=== PATIENT | female | born 1945 | race Caucasian/White ===

== ENCOUNTER 2017-02-26 15:55 | Emergency (ER) | payer OTHER ==
[~2017-02-26] VITALS: Ht 175.3 cm; Wt 81.9 kg
[~2017-02-26 15:55] MED LIST: AMLODIPINE BESY10 MG PO; ANTIVERT25 MG PO; CALTRATE 6001 TABLE1 PO; CARBAMAZEPINE200 MG PO; CIPRO500 MG PO; COLACE100 MG PO; DIAZEPAM5 MG PO; EPOGEN,PRO3000 UNITS SC; HEPARIN SO5000 UNITS SC; KEFLEX500 MG PO; KEPPRA1000 MG PO; KEPPRA750 MG PO; LABETALOL HCL100 MG PO; LABETALOL HCL200 MG PO; LISINOPRIL40 MG PO; LO-DOSE ASPIRIN81 M1 PO; LOSARTAN POTASS50 MG PO; NEPHRO-VITE,1 TABLET PO; NORTRIPTYLINE H10 MG PO; NORVASC10 MG PO; PRAVASTATIN SOD40 MG PO; PROTONIX40 MG PO; PYRIDIUM100 MG PO; RENA-VITE RX T1 EACH PO; RENAGEL800 MG PO; RENVELA800 MG PO; ROPINIROLE HCL1 MG PO; ROXICODONE5 MG PO; SENNA-TIME S T1 EACH PO; SENOKOT,SENN1 TABLET PO; SYNTHROID125 MCG PO; SYNTHROID175 MCG PO; TEGRETOL200 MG PO; TRANDATE300 MG PO; TUMS500 MG PO; VALIUM5 MG PO; VELPHORO500 MG PO; VITAMIN B-1100 MG PO; VITAMIN D22000 UNIT PO
[2017-02-26 17:35] LABS: CHLORIDE 99 mEq/L (99-109); POTASSIUM 4.1 mEq/L (3.7-5.4); SODIUM 128 mEq/L (136-147)
[2017-02-26 17:37] LABS: HEMATOCRIT 33.4 % (36.0-46.0); MCH 32.6 PG (29.0-34.0); MCHC 34.7 G/DL (30.0-36.0); MCV 93.8 FL (83-99); RBC DIS.WIDTH-CV 11.5 % (11.8-14.6); RED BLOOD COUNT 3.56 M/uL (3.80-5.20)
[2017-02-26 17:37] LABS: GLUCOSE 161 mg/dL (70-99)
[2017-02-26 17:38] LABS: WHITE BLOOD COUNT 1.5 K/uL (4.1-10.2)
[2017-02-26 17:38] LABS: ANION GAP 12 MEQ/L (2-14)
[2017-02-26 17:39] LABS: TOTAL BILIRUBIN 0.4 mg/dL (0.0-1.0)
[2017-02-26 17:40] LABS: ALKALINE PHOSPHATASE 84 IU/L (3-129)
[2017-02-26 17:41] LABS: GFR ESTIMATE (CALCULATED) 23 mL/min/
[2017-02-26 17:42] LABS: UREA NITROGEN (BUN) 52 mg/dL (9-23)
[2017-02-26 17:44] LABS: CREATINE KINASE 28 IU/L (1-294); TOTAL CK 28 IU/L (1-294)
[2017-02-26 17:49] LABS: CK-MB 2.3 ng/mL (0.0-4.9)
[2017-02-26 17:50] LABS: TROP-I INTERPRETATION NEGATIVE; TROPONIN-I < 0.01 ng/mL (0.0-0.30)
[2017-02-26 18:19] LABS: ADD MIUA? YES; BILIRUBIN NEGATIVE; BLOOD NEGATIVE; COLOR YELLOW ((YELLOW)); GLUCOSE (STRIP) NEGATIVE; KETONES NEGATIVE; LEUKOCYTES NEGATIVE; NITRITE NEGATIVE; PROTEIN (STRIP) 30; SPECIFIC GRAVITY 1.016 (1.000-1.030); UROBILINOGEN 0.2 MG/DL (0.2-1.0)
[2017-02-26 18:33] LABS: BACTERIA RARE /HPF; EPITHELIAL CELLS 4+ /HPF; MUCUS TRACE /LPF; RED BLOOD CELLS 0-5 /HPF (0-5); UCUL ADDED? NO
[2017-02-26] MEDS ORDERED: PAMELOR50 MG PO (19:02)
[2017-02-26] MEDS ORDERED: BACTRIM,SEPT1 TABLE1 PO (19:03)
[2017-02-26] MEDS ORDERED: PEPCID40 MG PO (19:03)
[2017-02-26] MEDS ORDERED: LEVO-T150 MCG PO (19:04)
[2017-02-26] MEDS ORDERED: PREDNISONE5 MG PO (19:05)
[2017-02-26] MEDS ORDERED: PROGRAF1 MG PO (19:06)
[2017-02-26] MEDS ORDERED: MYCOPHENOLATE500 MG PO (19:07)
[2017-02-26] MEDS ORDERED: NORMODYNE,TRAN200 MG PO (19:08)
[2017-02-26 19:17] LABS: ABS NEUTROPHIL COUNT 1.1; ANISOCYTOSIS 1+; ATYPICAL LYMPHOCYTE 2.6 %; BAND NEUTROPHILS 18.4 % (0-8.0); BASOPHILS 2.7 %; EOSINOPHIL ABS CT 0; EOSINOPHILS 2.7 % (0-5.0); GIANT PLATELETS 2+; INSTRUMENT ABS NEUTROPHIL CT 0.7 K/uL; LYMPHOCYTES 2.6 % (15.0-45.0); METAMYELOCYTES 2.6 %; MYELOCYTES 2.6 %; PLAT.SUFFICIENCY DECREASED; PLATELET CLUMPS PRESENT - PLATELET COUNT APPEARS ADQ.; POIKILOCYTOSIS 1+; SEG.NEUTROPHILS 52.6 % (46.0-76.0)
[2017-02-26 19:32] LABS: PLATELET COUNT UNABLE TO REPORT K/uL (156-360)
[2017-02-26 19:38] LABS: C-REACTIVE PROTEIN 120.3 MG/L (0-10)
[2017-02-27 01:14] VITALS: BP 124/58
[2017-02-27 09:26] LABS: LYME DISEASE SEROLOGY SCREEN NEGATIVE (NEGATIVE)
== END 2017-02-27 01:15 | disposition short-term general hospital (02) ==
LOC: EME 15:55
PROVIDERS: Emergency Medicine
DX: E87.1 Hypo-osmolality and hyponatremia (principal); N28.9 Disorder of kidney and ureter, unspecified; D72.829 Elevated white blood cell count, unspecified; Z94.0 Kidney transplant status; Z87.440 Personal history of urinary (tract) infections; Z85.41 Personal history of malignant neoplasm of cervix uteri; E78.5 Hyperlipidemia, unspecified; K21.9 Gastro-esophageal reflux disease without esophagitis; R56.9 Unspecified convulsions; E03.9 Hypothyroidism, unspecified; Z99.2 Dependence on renal dialysis; Z87.891 Personal history of nicotine dependence
CPT/HCPCS: 71020; 80053; 81003; 82550; 82553; 83605; 84484; 85025; 86140; 86618; 87040; 93005; 99281; 99285; J0692; J7030; J7050

== ENCOUNTER 2017-04-18 13:28 | Inpatient (IN) | payer OTHER ==
[~2017-04-18] VITALS: Ht 170.2 cm; Wt 81.4 kg
[~2017-04-18 13:28] MED LIST changes: +BACTRIM,SEPT1 TABLE1 PO; +LEVO-T150 MCG PO; +MYCOPHENOLATE500 MG PO; +NORMODYNE,TRAN200 MG PO; +PAMELOR50 MG PO; +PEPCID40 MG PO; +PREDNISONE5 MG PO; +PROGRAF1 MG PO
[2017-04-18 13:50] LABS: POINT-OF-CARE METER ID UU14100415
[2017-04-18 14:21] LABS: ADD MIUA? YES; BILIRUBIN NEGATIVE; BLOOD SMALL; COLOR YELLOW ((YELLOW)); GLUCOSE (STRIP) NEGATIVE; KETONES NEGATIVE; LEUKOCYTES NEGATIVE; NITRITE POSITIVE; PROTEIN (STRIP) 30; SPECIFIC GRAVITY 1.018 (1.000-1.030); UROBILINOGEN 0.2 MG/DL (0.2-1.0)
[2017-04-18 14:30] LABS: HEMATOCRIT 34.6 % (36.0-46.0); MCH 31.3 PG (29.0-34.0); MCHC 33.8 G/DL (30.0-36.0); MCV 92.5 FL (83-99); MEAN PLAT.VOLUME 11.8 uM^3 (9.5-12.4); PLATELET COUNT 103 K/uL (156-360); RBC DIS.WIDTH-CV 12.1 % (11.8-14.6); RBC DIS.WIDTH-SD 41.1 % (39-53); RED BLOOD COUNT 3.74 M/uL (3.80-5.20)
[2017-04-18 14:41] LABS: CHLORIDE 105 mEq/L (99-109); POTASSIUM 4.4 mEq/L (3.7-5.4); SODIUM 134 mEq/L (136-147)
[2017-04-18 14:43] LABS: GLUCOSE 144 mg/dL (70-99)
[2017-04-18 14:44] LABS: ANION GAP 12 MEQ/L (2-14)
[2017-04-18 14:47] LABS: GFR ESTIMATE (CALCULATED) 52 mL/min/
[2017-04-18 14:48] LABS: UREA NITROGEN (BUN) 22 mg/dL (9-23)
[2017-04-18 14:53] LABS: BACTERIA 3+ /HPF; EPITHELIAL CELLS NONE SEEN /HPF; MUCUS 4+ /LPF; RED BLOOD CELLS 0-5 /HPF (0-5); UCUL ADDED? YES
[2017-04-18] MEDS ORDERED: TACROLIMUS ANHYD1 MG PO (18:18)
[2017-04-18] MEDS ORDERED: LEVOTHYROXINE175 MCG PO (18:19)
[2017-04-18] MEDS ORDERED: ADALAT CC 30 MG30 MG PO (18:20)
[2017-04-18] MEDS ORDERED: NORTRIPTYLINE H25 MG PO (18:21)
[2017-04-18] MEDS ORDERED: AVENTYL,PAMELOR50 MG PO (20:42)
[2017-04-18] MEDS ORDERED: VITAMIN D31000 UNIT PO (20:44)
[2017-04-18 22:40] VITALS: BP 152/67
[2017-04-19] VITALS: BP 130/61
[2017-04-19 04:29] VITALS: BP 140/65
[2017-04-19 06:14] LABS: HEMATOCRIT 34.1 % (36.0-46.0); MCH 31.2 PG (29.0-34.0); MCHC 33.4 G/DL (30.0-36.0); MCV 93.4 FL (83-99); MEAN PLAT.VOLUME 11.8 uM^3 (9.5-12.4); PLATELET COUNT 97 K/uL (156-360); RBC DIS.WIDTH-SD 41.6 % (39-53); RED BLOOD COUNT 3.65 M/uL (3.80-5.20)
[2017-04-19 06:36] LABS: ANION GAP 9 MEQ/L (2-14); CHLORIDE 111 MEQ/L (99-109); GFR ESTIMATE (CALCULATED) > 59 mL/min/; POTASSIUM 4.3 MEQ/L (3.7-5.4); SAMPLE HEMOLYSIS CHECK 0; SAMPLE ICTERIC CHECK 0; SAMPLE LIPEMIA CHECK 0; SODIUM 140 MEQ/L (136-147); UREA NITROGEN (BUN) 18 mg/dL (9-23)
[2017-04-19 06:43] LABS: GLUCOSE 101 mg/dL (70-99)
[2017-04-19 08:33] VITALS: BP 132/62
[2017-04-19] MEDS ORDERED: NORTRIPTYLINE H25 MG PO (09:47)
[2017-04-19] MEDS ORDERED: VITAMIN D31000 UNI2 PO (09:48)
[2017-04-19 12:41] VITALS: BP 140/63
[2017-04-19 15:00] VITALS: BP 140/62
[2017-04-19 23:03] VITALS: BP 128/58
[2017-04-20 03:33] VITALS: BP 99/54
[2017-04-20 07:38] VITALS: BP 112/51
[2017-04-20 10:45] VITALS: BP 124/59
[2017-04-20 16:32] VITALS: BP 136/60
[2017-04-20 23:40] VITALS: BP 148/67
[2017-04-21 06:42] LABS: HEMATOCRIT 33.9 % (36.0-46.0); MCH 31.5 PG (29.0-34.0); MCHC 33.3 G/DL (30.0-36.0); MCV 94.4 FL (83-99); MEAN PLAT.VOLUME 12.1 uM^3 (9.5-12.4); PLATELET COUNT 113 K/uL (156-360); RBC DIS.WIDTH-CV 12.1 % (11.8-14.6); RED BLOOD COUNT 3.59 M/uL (3.80-5.20); WHITE BLOOD COUNT 2.7 K/uL (4.1-10.2)
[2017-04-21 07:19] LABS: ANION GAP 12 MEQ/L (2-14); CHLORIDE 111 MEQ/L (99-109); GFR ESTIMATE (CALCULATED) 58 mL/min/; GLUCOSE 97 mg/dL (70-99); POTASSIUM 4.2 MEQ/L (3.7-5.4); SAMPLE HEMOLYSIS CHECK 0; SAMPLE ICTERIC CHECK 0; SAMPLE LIPEMIA CHECK 0; SODIUM 141 MEQ/L (136-147); UREA NITROGEN (BUN) 21 mg/dL (9-23)
[2017-04-21 07:20] VITALS: BP 136/88
[2017-04-21] MEDS ORDERED: BACTRIM,SEPT1 TABLET PO (09:51)
[2017-04-21] MEDS ORDERED: VALGANCICLOVIR450 MG PO (09:51)
== END 2017-04-21 12:49 | disposition home or self-care (01) | DRG 690 ==
LOC: EME 13:28 → EDOF 20:27 → 5EAST 20:27
PROVIDERS: Emergency Medicine; Hospitalist; Internal Medicine
DX: N39.0 Urinary tract infection, site not specified (principal); Z94.0 Kidney transplant status; K21.9 Gastro-esophageal reflux disease without esophagitis; B25.9 Cytomegaloviral disease, unspecified; W19.XXXA Unspecified fall, initial encounter; I10 Essential (primary) hypertension; E78.5 Hyperlipidemia, unspecified; E03.9 Hypothyroidism, unspecified; Z79.82 Long term (current) use of aspirin; Z79.52 Long term (current) use of systemic steroids; Z72.0 Tobacco use; Z79.899 Other long term (current) drug therapy; Z68.28 Body mass index [BMI] 28.0-28.9, adult; Z87.440 Personal history of urinary (tract) infections
CPT/HCPCS: 70450; 70553; 71020; 80048; 81003; 82948; 84439; 84443; 85027; 87040; 87086; 93005; 99281; 99285; J0692; J1644; J2060; J2405; J7030; J7050; J7507; J7512; J7517

== ENCOUNTER 2017-08-19 11:10 | Emergency (ER) | payer OTHER ==
[~2017-08-19] VITALS: Ht 175.3 cm; Wt 77.2 kg
[~2017-08-19 11:10] MED LIST changes: +ADALAT CC 30 MG30 MG PO; +AVENTYL,PAMELOR50 MG PO; +BACTRIM,SEPT1 TABLET PO; +CELLCEPT500 MG PO; +LEVOTHYROXINE175 MCG PO; +NORTRIPTYLINE H25 MG PO; +TACROLIMUS ANHYD1 MG PO; +VALGANCICLOVIR450 MG PO; +VITAMIN D31000 UNI2 PO; +VITAMIN D31000 UNIT PO
[2017-08-19 12:22] LABS: EOSINOPHIL (%) 0.1 % (0-5); HEMATOCRIT 32.2 % (36.0-46.0); IMMATURE GRANULOCYTE (%) 0.6 % (0.0-0.7); IMMATURE GRANULOCYTE COUNT 0.1 K/uL; INSTRUMENT ABS NEUTROPHIL CT 7.9 K/uL; LYMPHOCYTE COUNT 0.5 K/uL (1.0-2.8); MCH 33.8 PG (29.0-34.0); MCHC 33.2 G/DL (30.0-36.0); MCV 101.6 FL (83-99); MEAN PLAT.VOLUME 12.8 uM^3 (9.5-12.4); MONOCYTE COUNT 0.5 K/uL (0-0.8); NEUTROPHIL (%) 87.3 % (45-76); NEUTROPHIL COUNT 7.9 K/uL (1.8-6.4); PLATELET COUNT 112 K/uL (156-360); RBC DIS.WIDTH-CV 12.7 % (11.8-14.6); RBC DIS.WIDTH-SD 47.7 % (39-53); RED BLOOD COUNT 3.17 M/uL (3.80-5.20)
[2017-08-19 12:32] LABS: CHLORIDE 108 mEq/L (99-109); POTASSIUM 3.6 mEq/L (3.7-5.4); SODIUM 136 mEq/L (136-147)
[2017-08-19 12:33] LABS: GLUCOSE 146 mg/dL (70-99)
[2017-08-19 12:35] LABS: ANION GAP 9 MEQ/L (2-14)
[2017-08-19 12:37] LABS: GFR ESTIMATE (CALCULATED) 58 mL/min/
[2017-08-19 12:38] LABS: UREA NITROGEN (BUN) 25 mg/dL (9-23)
[2017-08-19 12:41] LABS: TROP-I INTERPRETATION NEGATIVE; TROPONIN-I < 0.01 ng/mL (0.0-0.30)
[2017-08-19] MEDS ORDERED: ZITHROMAX Z-PA250 MG PO (15:47)
[2017-08-19 15:59] VITALS: BP 141/60
== END 2017-08-19 16:07 | disposition home or self-care (01) ==
LOC: EME 11:10
PROVIDERS: Emergency Medicine
DX: J40 Bronchitis, not specified as acute or chronic (principal); R06.02 Shortness of breath; I12.9 Hypertensive chronic kidney disease with stage 1 through stage 4 chronic kidney disease, or unspecified chronic kidney disease; N18.9 Chronic kidney disease, unspecified; Z94.0 Kidney transplant status; Z99.2 Dependence on renal dialysis; E78.5 Hyperlipidemia, unspecified; E03.9 Hypothyroidism, unspecified; F32.9 Major depressive disorder, single episode, unspecified; K21.9 Gastro-esophageal reflux disease without esophagitis; R56.9 Unspecified convulsions; Z86.73 Personal history of transient ischemic attack (TIA), and cerebral infarction without residual deficits; Z79.82 Long term (current) use of aspirin; Z85.41 Personal history of malignant neoplasm of cervix uteri; Z88.7 Allergy status to serum and vaccine
CPT/HCPCS: 71020; 71275; 80048; 84484; 85025; 93005; 93306; 99281; 99285

== ENCOUNTER 2017-08-28 17:47 | Inpatient (IN) | payer OTHER ==
[~2017-08-28] VITALS: Ht 175.3 cm; Wt 98.9 kg
[~2017-08-28 17:47] MED LIST changes: +ZITHROMAX Z-PA250 MG PO
[2017-08-28 18:28] LABS: EOSINOPHIL (%) 0.5 % (0-5); EOSINOPHIL COUNT 0.1 K/uL (0-0.3); HEMATOCRIT 33.5 % (36.0-46.0); IMMATURE GRANULOCYTE (%) 0.4 % (0.0-0.7); INSTRUMENT ABS NEUTROPHIL CT 9.2 K/uL; LYMPHOCYTE COUNT 0.7 K/uL (1.0-2.8); MCHC 32.5 G/DL (30.0-36.0); MCV 101.5 FL (83-99); MEAN PLAT.VOLUME 12.1 uM^3 (9.5-12.4); MONOCYTE (%) 4.4 % (3-12); MONOCYTE COUNT 0.5 K/uL (0-0.8); NEUTROPHIL (%) 87.5 % (45-76); NEUTROPHIL COUNT 9.2 K/uL (1.8-6.4); RBC DIS.WIDTH-CV 12.7 % (11.8-14.6); RBC DIS.WIDTH-SD 47.8 % (39-53); WHITE BLOOD COUNT 10.5 K/uL (4.1-10.2)
[2017-08-28 18:39] LABS: CHLORIDE 106 mEq/L (99-109); POTASSIUM 4.3 mEq/L (3.7-5.4); SODIUM 133 mEq/L (136-147)
[2017-08-28 18:40] LABS: GLUCOSE 132 mg/dL (70-99)
[2017-08-28 18:41] LABS: PLATELET COUNT 147 K/uL (156-360)
[2017-08-28 18:42] LABS: ANION GAP 9 MEQ/L (2-14)
[2017-08-28 18:44] LABS: GFR ESTIMATE (CALCULATED) 58 mL/min/
[2017-08-28 18:45] LABS: UREA NITROGEN (BUN) 15 mg/dL (9-23)
[2017-08-28 18:49] LABS: TROP-I INTERPRETATION NEGATIVE; TROPONIN-I < 0.01 ng/mL (0.0-0.30)
[2017-08-28 18:55] LABS: INTER. NORMALIZED RATIO 1.3; PROTHROMBIN TIME 14.7 SEC (10.2-12.9)
[2017-08-28 18:58] LABS: PTT 27.1 SEC (25-37)
[2017-08-28 22:16] LABS: HDL CHOLESTEROL 28 MG/DL (Desirable>=50); LDL CHOLESTEROL 120 mg/dL (Desirable<100); NON-HDL CHOLESTEROL 152 mg/dL (Desirable<160); TOTAL CHOLESTEROL 180 mg/dL (Desirable<200); TRIGLYCERIDES 162 MG/DL (Normal: <150)
[2017-08-28 22:47] VITALS: BP 127/60
[2017-08-28 23:40] VITALS: BP 137/76
[2017-08-28 23:56] LABS: ADD MIUA? YES; BILIRUBIN NEGATIVE; BLOOD SMALL; COLOR YELLOW ((YELLOW)); GLUCOSE (STRIP) NEGATIVE; KETONES NEGATIVE; LEUKOCYTES SMALL; NITRITE POSITIVE; PROTEIN (STRIP) 30; SPECIFIC GRAVITY 1.016 (1.000-1.030); UROBILINOGEN 0.2 MG/DL (0.2-1.0)
[2017-08-29 00:07] LABS: BACTERIA 3+ /HPF; EPITHELIAL CELLS RARE /HPF; MUCUS TRACE /LPF; RED BLOOD CELLS 0-5 /HPF (0-5); UCUL ADDED? YES; WHITE BLOOD CELLS 30-40 /HPF (0-5)
[2017-08-29 03:42] VITALS: BP 160/70
[2017-08-29 07:34] VITALS: BP 162/69
[2017-08-29 07:35] LABS: Estimated Average Glucose 137 mg/dL (70-123); HEMOGLOBIN A1c (GLYCOHEMOGLOB) 6.4 % HGB (Below 5.7)
[2017-08-29 08:07] LABS: HEMATOCRIT 32.4 % (36.0-46.0); MCH 33.3 PG (29.0-34.0); MCHC 31.8 G/DL (30.0-36.0); MCV 104.9 FL (83-99); MEAN PLAT.VOLUME 12.8 uM^3 (9.5-12.4); PLATELET COUNT 148 K/uL (156-360); RBC DIS.WIDTH-CV 12.8 % (11.8-14.6); RED BLOOD COUNT 3.09 M/uL (3.80-5.20); WHITE BLOOD COUNT 9.3 K/uL (4.1-10.2)
[2017-08-29 08:41] LABS: ANION GAP 9 MEQ/L (2-14); CHLORIDE 108 MEQ/L (99-109); GFR ESTIMATE (CALCULATED) 52 mL/min/; GLUCOSE 112 mg/dL (70-99); POTASSIUM 4.5 MEQ/L (3.7-5.4); SAMPLE HEMOLYSIS CHECK 0; SAMPLE ICTERIC CHECK 0; SAMPLE LIPEMIA CHECK 0; SODIUM 138 MEQ/L (136-147); UREA NITROGEN (BUN) 16 mg/dL (9-23)
[2017-08-29 09:56] LABS: HBSG INDEX 0.16; HPCA INDEX 0.16
[2017-08-29 09:57] LABS: ANTI-HEPATITIS A VIRUS (IGM) Nonreactive; HAV INDEX 0.08
[2017-08-29 09:58] LABS: ANTI-HEPATITIS B CORE (IGM) Nonreactive; HBC IgM INDEX 0.07
[2017-08-29 16:10] VITALS: BP 150/63
[2017-08-29 23:50] VITALS: BP 167/83
[2017-08-30 06:53] VITALS: BP 153/67
[2017-08-30 15:14] VITALS: BP 158/69
[2017-08-31 00:07] VITALS: BP 171/72
[2017-08-31 06:57] VITALS: BP 168/75
[2017-08-31 09:14] LABS: EOSINOPHIL (%) 1.6 % (0-5); EOSINOPHIL COUNT 0.1 K/uL (0-0.3); HEMATOCRIT 25.7 % (36.0-46.0); IMMATURE GRANULOCYTE (%) 0.2 % (0.0-0.7); INSTRUMENT ABS NEUTROPHIL CT 3.2 K/uL; LYMPHOCYTE COUNT 0.6 K/uL (1.0-2.8); MCH 33.7 PG (29.0-34.0); MCHC 32.7 G/DL (30.0-36.0); MCV 103.2 FL (83-99); MEAN PLAT.VOLUME 12.3 uM^3 (9.5-12.4); MONOCYTE (%) 8.2 % (3-12); MONOCYTE COUNT 0.4 K/uL (0-0.8); NEUTROPHIL (%) 75.4 % (45-76); NEUTROPHIL COUNT 3.2 K/uL (1.8-6.4); PLATELET COUNT 106 K/uL (156-360); RBC DIS.WIDTH-CV 12.8 % (11.8-14.6); RBC DIS.WIDTH-SD 47.9 % (39-53); RED BLOOD COUNT 2.49 M/uL (3.80-5.20); WHITE BLOOD COUNT 4.3 K/uL (4.1-10.2)
[2017-08-31 09:44] LABS: ANION GAP 8 MEQ/L (2-14); CHLORIDE 113 MEQ/L (99-109); GFR ESTIMATE (CALCULATED) > 59 mL/min/; GLUCOSE 85 mg/dL (70-99); POTASSIUM 3.8 MEQ/L (3.7-5.4); SAMPLE HEMOLYSIS CHECK 0; SAMPLE ICTERIC CHECK 0; SAMPLE LIPEMIA CHECK 0; SODIUM 139 MEQ/L (136-147); UREA NITROGEN (BUN) 9 mg/dL (9-23)
[2017-08-31 10:46] LABS: ALKALINE PHOSPHATASE 63 IU/L (3-129); CREATINE KINASE 13 IU/L (1-294); TOTAL BILIRUBIN 0.3 MG/DL (0.0-1.0)
[2017-08-31 11:08] LABS: OVALOCYTES 1+; PLAT.SUFFICIENCY DECREASED; POIKILOCYTOSIS 1+; TEAR DROP CELLS 1+
[2017-08-31 15:17] VITALS: BP 165/87
[2017-08-31 23:51] VITALS: BP 138/63
[2017-09-01 07:00] LABS: EOSINOPHIL (%) 1.7 % (0-5); EOSINOPHIL COUNT 0.1 K/uL (0-0.3); HEMATOCRIT 29.1 % (36.0-46.0); IMM.RETIC FRACTION 9.9 % (3-19); IMMATURE GRANULOCYTE (%) 0.2 % (0.0-0.7); LYMPHOCYTE COUNT 0.9 K/uL (1.0-2.8); MCH 32.2 PG (29.0-34.0); MCHC 31.6 G/DL (30.0-36.0); MCV 101.7 FL (83-99); MEAN PLAT.VOLUME 11.9 uM^3 (9.5-12.4); MONOCYTE (%) 9.2 % (3-12); MONOCYTE COUNT 0.5 K/uL (0-0.8); NEUTROPHIL (%) 72.9 % (45-76); PLATELET COUNT 117 K/uL (156-360); RBC DIS.WIDTH-CV 12.7 % (11.8-14.6); RBC DIS.WIDTH-SD 47.3 % (39-53); RED BLOOD COUNT 2.86 M/uL (3.80-5.20); RETIC HGB EQUIVALENT 29.6 (28-36); RETICULOCYTE COUNT 1.3 % (0.5-1.8); WHITE BLOOD COUNT 5.4 K/uL (4.1-10.2)
[2017-09-01 07:52] VITALS: BP 164/68
[2017-09-01 08:09] LABS: ANION GAP 8 MEQ/L (2-14); CHLORIDE 110 MEQ/L (99-109); FERRITIN 1302 NG/ML (10-291); GFR ESTIMATE (CALCULATED) > 59 mL/min/; IRON 26 MCG/DL (35-150); POTASSIUM 4.5 MEQ/L (3.7-5.4); SAMPLE HEMOLYSIS CHECK 0; SAMPLE ICTERIC CHECK 0; SAMPLE LIPEMIA CHECK 0; SODIUM 137 MEQ/L (136-147); UREA NITROGEN (BUN) 9 mg/dL (9-23)
[2017-09-01 08:13] LABS: GLUCOSE 108 mg/dL (70-99)
[2017-09-01 10:44] LABS: ABS NEUTROPHIL COUNT 3.3; ATYPICAL LYMPHOCYTE 4.4 %; EOSINOPHIL ABS CT 0.1; EOSINOPHILS 2.6 % (0-5.0); LYMPHOCYTES 9.7 % (15.0-45.0); SEG.NEUTROPHILS 77.2 % (46.0-76.0); SMEAR EVALUATION YES
[2017-09-01] MEDS ORDERED: FOLIC ACID1 MG PO (12:00)
[2017-09-01] MEDS ORDERED: LYRICA75 MG PO (12:00)
[2017-09-01 16:25] VITALS: BP 146/92
== END 2017-09-01 16:42 | disposition home or self-care (01) | DRG 948 ==
LOC: EME 17:47 → 5SOUTH 19:42 → EDOF 19:42 → ENRESERV 19:44 → 5SOUTH 22:28
PROVIDERS: Emergency Medicine; Internal Medicine; Physician Assistant Medical
DX: R41.0 Disorientation, unspecified (principal); T45.1X5A Adverse effect of antineoplastic and immunosuppressive drugs, initial encounter; N39.0 Urinary tract infection, site not specified; E03.9 Hypothyroidism, unspecified; Z94.0 Kidney transplant status; G47.10 Hypersomnia, unspecified; K21.9 Gastro-esophageal reflux disease without esophagitis; Z87.891 Personal history of nicotine dependence; R56.9 Unspecified convulsions; I15.2 Hypertension secondary to endocrine disorders; F32.9 Major depressive disorder, single episode, unspecified; F41.9 Anxiety disorder, unspecified; G25.81 Restless legs syndrome; J98.11 Atelectasis
CPT/HCPCS: 70450; 70551; 71020; 80048; 80061; 80074; 80076; 80197 90; 81003; 82085 90; 82272; 82550; 82607; 82728; 82746; 83036; 83540; 83880; 84466; 84484; 85007; 85025; 85025 91; 85027; 85045; 85060; 85610; 85730; 87040; 87086; 93005; 95819; 99281; 99285; J0692; J0696; J1644; J1953; J2060; J7030; J7050; J7507; J7517